=== PATIENT | male | born 1960 | race Caucasian/White ===

== ENCOUNTER 2021-01-27 13:08 | Inpatient (IN) ==
--- NOTE | 2021-01-13 15:07 | Anesthesiology Consultation ---
Date of Service January 13, 2021 Assessment & Plan (1) Encounter for pre-operative examination: Chart Review Chart Review: Acceptable Risk for Surgery (pending preop Covid testing on 01/20/21 and copy of Covid positive test from 12/30/20 ) and Patient NOT seen in Pre Admission Testing Per nursing assessment 01/13/2021, patient resides and works in [facility]. Works as owner operator tanker truck driver. Wears mask, uses good hand hygiene and socially distances. Pt did test Covid positive on 12/30/20 at [facility] (pt was scheduled for surgery that day and had symptoms so rapid Covid test was done). Had tested Covid negative 12/27/20. At time of Covid positive test- patient had chest congestion. Symptoms have significantly improved- has residual mild rhinitis in the morning. Pt was educated on 01/13/21 to call if symptoms do not continue to get better or get worse again. Pt scheduled for preop Covid testing 01/20/21= will await results. Will also attempt to get copy of original Covid positive test from 12/30/20. History Surgery Operation Date: 01/27/21 12:35 Proposed Procedures p L4-L5 Decompression and Fusion Spinal Cord Monitoring - Jayy Hunt, Height/Weight Height: 6 ft Weight: 117.934 kg Allergies Allergy/AdvReac Type Severity Reaction Status Date / Time No Known Allergies Allergy Verified 01/13/21 14:01 Medications Home Medications Medication Instructions Recorded Confirmed Last Taken levothyroxine 125 mcg PO QAM 01/13/21 01/13/21 Unknown lisinopril 40 mg PO QAM 01/13/21 01/13/21 Unknown simvastatin 20 mg PO QAM 01/13/21 01/13/21 Unknown Past Medical History Medical History (Updated 01/13/21 @ 15:20 by Rosie Friend PA-C) Cardiac murmur Murmur heard over six years ago- had negative work up Murmur has since resolved per patient - no issues currently Chronic back pain LOWER BACK TO BILAT LEGS History of COVID-19 12/27/20 [facility] NEG PREOP COVID TEST/CAME IN FOR BACK SX-12/30/20 [facility], HAD DEVELOPED CHEST CONGESTION OVER THE WEEKEND-RAPID COVID TEST DONE DOS-POS RESULT-SYMPTOMS CHEST CONGESTION WITH COUGH WITH PHLEGM-SX CANCELLED-STILL FEELS SOME CHEST CONGESTION BRINGING UP PHLEGM IN AM- RECOVERED AT HOME. Hyperlipidemia Hypertension Hypothyroidism Past Family History Family History Father Family history of diabetes mellitus Past Surgical History Surgical History History of arthroscopy LEFT KNEE History of colonoscopy History of tooth extraction Social History Smoking Status: Former smoker Do You Dip or Chew Tobacco: Yes (1 CAN PER WEEK) Smoking End Date: QUIT 8 YRS AGO Hx Alcohol Use: No Hx Substance Use: No Testing Laboratory Results Laboratory Tests 12/19/20 12/19/20 12/19/20 12:24 12:24 12:24 WBC 7.97 Hgb 14.6 Hct 42.2 Plt Count 243 PT 10.8 INR 1.1 Sodium 141 Potassium 3.9 Chloride 108 H Carbon Dioxide 26 BUN 14 Creatinine 1.06 Glucose 85 12/19/2020 = UA: Negative Electrocardiogram Date: 12/19/20 Findings: + NSR @ (81 bpm) Normal EKG. Chest X-Ray Date: 12/19/20 Findings: + NAD Metal subcentimeter BB projects over the right chest wall. Mild flattening of the diaphragm.
[~2021-01-27 13:08] MED LIST: ACETAMINOPHEN 500 MG TAB PO SCH; CeleBREX 200 MG CAP PO SCH; GABAPENTIN 600 MG DOSE PO SCH; LR 15ML/HR IV SCH; ceFAZolin 2000MG 2,000 MG/15 ML SYR IV SCH
[2021-01-27] MEDS ORDERED: ROCURONIUM BROMIDE 10 MG/ML 5 ML VIAL IV ONE (13:30)
[2021-01-27] MEDS ORDERED: NEOSTIGMINE METHYLSULFATE 1 MG/ML 10ML VIAL ONE (13:30)
[2021-01-27] MEDS ORDERED: DEXAMETHASONE SOD INJ 4 MG/ML VIAL ONE (13:30)
[2021-01-27] MEDS ORDERED: GLYCOPYRROLATE 0.2 MG/ML VIAL ONE ×2 (13:30→17:11)
[2021-01-27] MEDS ORDERED: MIDAZOLAM HCL 1 MG/ML 2ML VIAL ONE (13:30)
[2021-01-27] MEDS ORDERED: PROPOFOL IV EMULSION 10 MG/ML 20 ML VIAL IV ONE (13:30)
[2021-01-27] MEDS ORDERED: LIDOCAINE HCL 2% 2 ML VIAL/AMP(20MG/ML) INFIL ONE (13:30)
[2021-01-27] MEDS ORDERED: ONDANSETRON INJ 2 MG/ML 2 ML VIAL ONE ×2 (13:30→17:11)
[2021-01-27] MEDS ORDERED: HYDROmorphone INJ 2 MG/ML SYR/VIAL ONE (13:30)
[2021-01-27] MEDS ORDERED: ONDANSETRON INJ 2 MG/ML 2 ML VIAL IV PRN ×2 (14:05→18:57)
[2021-01-27] MEDS ORDERED: ePHEDrine sulfate 50 MG/ML AMP IV PRN (14:05)
[2021-01-27] MEDS ORDERED: HYDROmorphone INJ 1 MG/ML SYRINGE IV PRN ×2 (14:05→18:57)
[2021-01-27] MEDS ORDERED: ATROPINE SULFATE 0.1 MG/ML 10ML SYR IV PRN (14:05)
[2021-01-27] MEDS ORDERED: fentaNYL citrate 100 MCG/2 ML VIAL ONE (15:02)
--- NOTE | 2021-01-27 15:11 | History & Physical Bridge Note ---
Date of Service January 27, 2021 History & Physical Bridge Note I have examined the patient, reviewed the History & Physical and in the interval since the performance of the History & Physical I have noted the following changes of clinical significance: no changes noted
--- NOTE | 2021-01-27 15:12 | History & Physical Report ---
Date of Service January 27, 2021 Assessment & Plan (1) Neurogenic claudication due to lumbar spinal stenosis: Admission and Anticipated Discharge Date Admission Date: L4-L5 decompression fusion History of Present Illness Chief Complaint: Back and leg pain Primary Care Provider: Wm Deal MD This is a 60-year-old male who presents with chronic persistent back and leg pain after failing extensive course of nonoperative care is here for surgical invention. Allergies Allergy/AdvReac Type Severity Reaction Status Date / Time No Known Allergies Allergy Verified 01/27/21 13:39 Home Medications Medication Instructions Recorded Confirmed Type levothyroxine 125 mcg PO QAM 01/13/21 01/27/21 History lisinopril 40 mg PO QAM 01/13/21 01/27/21 History simvastatin 20 mg PO QAM 01/13/21 01/27/21 History Past Med/Surg History Medical History (Updated 01/27/21 @ 15:11 by Jayy Hunt DO) Cardiac murmur Murmur heard over six years ago- had negative work up Murmur has since resolved per patient - no issues currently Chronic back pain LOWER BACK TO BILAT LEGS History of COVID-19 12/27/20 [facility] NEG PREOP COVID TEST/CAME IN FOR BACK SX-12/30/20 [facility], HAD DEVELOPED CHEST CONGESTION OVER THE WEEKEND-RAPID COVID TEST DONE DOS-POS RESULT-SYMPTOMS CHEST CONGESTION WITH COUGH WITH PHLEGM-SX CANCELLED-STILL FEELS SOME CHEST CONGESTION BRINGING UP PHLEGM IN AM- RECOVERED AT HOME. Hyperlipidemia Hypertension Hypothyroidism Surgical History History of arthroscopy LEFT KNEE History of colonoscopy History of tooth extraction Family History Father Family history of diabetes mellitus Social History Smoking Status: Former smoker Smoking End Date: QUIT 8 YRS AGO; Second Hand Exposure: Yes (PARENTS SMOKED); Do You Dip or Chew Tobacco: Yes (1 CAN PER WEEK); Hx Alcohol Use: No Hx Substance Use: No Preferred Language: Mongolian Communication Ability: Effective Juvenile Justice Officer Required: No Beliefs That Will Affect Care: None Current Living Situation: Spouse Other Information That Helps Us Care for You: No Feels Safe at Home: Yes Safety Concerns: Feels Safe At This Time Assistive Devices: Denture - Upper, Denture - Lower and Hearing Aid - Left Physical Exam Physical Exam: Patient is alert and oriented Heart regular rate and rhythm Lungs clear to auscultation Results & Data ([facility]) Vital Signs (Past 12 Hours) Vital Signs Temp Pulse Resp BP Pulse Ox 01/27/21 13:41 36.5 C 81 22 155/99 H 98
[2021-01-27] MEDS ORDERED: BUPIVACAINE/EPINEPHRINE 0.5% MPF 1:200,000 30 ML VIAL ONE (15:23)
[2021-01-27] MEDS ORDERED: BACITRACIN INJ 50,000 UNIT VIAL ONE (15:24)
[2021-01-27] MEDS ORDERED: ePHEDrine sulfate 50 MG/ML AMP ONE (16:15)
[2021-01-27] MEDS ORDERED: PHENYLEPHRINE 100MCG/ML 5ML SYR ONE (16:15)
[2021-01-27] MEDS ORDERED: FLOSEAL HEMOSTATIC MATRIX 10ML TOP ONE ×2 (16:29→16:35)
[2021-01-27] MEDS ORDERED: LARYING-O-JET KIT (LTA) ONE (17:11)
--- NOTE | 2021-01-27 17:49 | Fluoroscopy Report ---
FL lumbar spine 2-3V CLINICAL HISTORY: L4-L5 DECOMPRESSION AND FUSION COMPARISON STUDY: None FLUOROSCOPY TIME: 10 seconds. NUMBER OF FLUOROSCOPIC IMAGES: 2 FINDINGS: 2 intraoperative fluoroscopic spot images demonstrate postsurgical changes of an L4-5 disce ctomy and interbody fusion, and posterior pedicle screw fixation. IMPRESSION: Intraoperative fluoroscopic spot images demonstrating postsurgical changes of an L4-5 sp inal decompression and fusion ACT 112: Negative or not required by law. Electronically signed by: Dao Montoya M.D. 01/27/2021 5:48 PM
--- NOTE | 2021-01-27 17:50 | Operative Report ---
Post Operative Report Pre & Post Diagnosis Operation Date: 01/27/21 12:45 Pre-Op Diagnosis: Spinal Stenosis, Lumbar Region without Neurogenic Post-Op Diagnosis: Spinal Stenosis, Lumbar Region without Neurogenic I identified the patient and participated in the time-out.: Yes Procedure Operation Date: 01/27/21 12:45 Actual Procedures #1 lumbar decompression with bilateral medial facetectomies and foraminotomies L3-4 and L4-5. #2 posterior spinal fusion L4-5. #3 placement posterior instrumentation L4-5. #4 interbody fusion L4-5. #5 placement peek cage 14 x 26 mm at L4-5. #6 placement of locally harvested morselized autograft in the posterior lateral gutters. #7 placement infuse collagen sponge combined with master graft in the posterior lateral gutters and I factor in the interbody space. Surgeon Jayy Hunt, Applications Scientist None Estimated Blood Loss 330 Findings See Below Patient is 6 foot tall weighing over 115 kg with a BMI in excess of 34. The patient's body habitus did add significant technical difficulty requiring her deepest retractors longus instruments in order to perform his procedure. This had at least 50% increase to the operative time. Specimens None Indications This is a 60-year-old male that presents with above-mentioned diagnosis after failing stents course of nonoperative care is here for surgical invention. Description of Procedure Patient was met with identified informed consent obtained. Patient was then taken to the operative suite underwent a patient placed in a prone position the [address] table top Jared frame. All bony prominences well-padded eyes inspected to ensure no external pressure placed upon the bed at this point the lumbar spine was prepped and draped in normal sterile fashion. Sharp dissection with the assistance of Bovie cautery performed down to and exposing the lamina and transverse processes of L4 and L5 bilaterally. Self-retaining retractor was placed. Informed complete laminectomy of L4 partial laminectomy of L3 including bilateral medial facetectomies and foraminotomies. This address severe lateral recess disease briefly the 4 5 level on the right where there was marked adhesions of the facet cyst on the traversing root. After complete decompression pedicle screws then placed in L4 and L5 bilaterally with assistance of fluoroscopy and appropriately sized elise placed. By way of a transforaminal approach on right a complete discectomy was performed endplates curetted to subcortical bleeding bone and a 14 x 26 mm peek cage filled with I factor tapped in position. The rods were then locked in final position bilaterally. The transverse processes of L4 and L5 burred to subcortical bleeding bone. Infuse collagen sponge master graft local autograft was placed in the posterior gutters. 15 round ROCKY drain inserted. The incision was then closed with 1 Vicryl in the fascia 2-0 Vicryl subcutaneously and 4 Monocryl for final skin closure. Steri-Strip sterile dressings placed. Patient will continue to PACU stable condition. Please note spinal cord monitoring was utilized at the procedure no changes noted. I attest to the content of the Intraoperative Record and any orders documented therein. Any exceptions are noted below.
[2021-01-27] MEDS: fentaNYL citrate 100 MCG/2 ML VIAL IV PRN ×2 (18:22→18:27)
--- NOTE | 2021-01-27 18:45 | Anesthesiology Progress Note ---
Date of Service January 27, 2021 Anesthesia Post Procedure Vital Signs Vital Signs: Temp Pulse Pulse Resp BP Pulse Ox 01/27/21 18:43 84 12 150/87 H 97 01/27/21 18:35 36.2 C L 87 19 150/87 H 96 01/27/21 18:25 68 14 142/83 H 98 01/27/21 18:15 88 14 162/94 H 98 01/27/21 18:05 69 14 135/81 93 01/27/21 17:58 36.8 C 96 H 18 157/81 H 96 01/27/21 13:41 36.5 C 81 22 155/99 H 98 Pain Intensity Lower Medial Back: Pain Intensity: 4 Transfer of Care Handoff Completed per policy Notes Mental Status: alert / awake / arousable Patient Amnestic to Procedure: Yes Nausea / Vomiting: adequately controlled Pain: adequately controlled Airway Patency, RR, SpO2: stable & adequate BP & HR: stable & adequate Hydration State: stable & adequate Anesthetic Complications: no major complications apparent
[2021-01-27] MEDS ORDERED: hydrOXYzine HCl 25 MG TAB PO PRN (18:57)
[2021-01-27] MEDS ORDERED: LACTATED RINGER'S 1,000 ML IV SCH (18:57)
[2021-01-27] MEDS ORDERED: LORazepam 0.5 MG TAB PO PRN (18:57)
[2021-01-27] MEDS ORDERED: DO NOT ADMINISTER FLU VACCINE PRN (18:57)
[2021-01-27] MEDS ORDERED: ALUMINUM/MAGNESIUM SUSP 30 ML UDC PO PRN (18:57)
[2021-01-27] MEDS ORDERED: ACETAMINOPHEN 500 MG TAB PO PRN (18:57)
[2021-01-27] MEDS ORDERED: SOD PHOSPHATE/SOD BIPHOSPHATE ENEMA 132 ML BTL PR PRN (18:57)
[2021-01-27] MEDS ORDERED: LORazepam 0.5 MG/1 ML VIAL IV PRN (18:57)
[2021-01-27] MEDS ORDERED: PROMETHAZINE HCL 12.5 MG in SODIUM CHLORIDE 0.9% 50 ML IV PRN (18:57)
[2021-01-27] MEDS ORDERED: DO NOT ADMINISTER PNEUMOCOCCAL VACCINE PRN (18:57)
[2021-01-27] MEDS ORDERED: ACETAMINOPHEN 1,000 MG/100 ML VIAL IV PRN (18:57)
[2021-01-27] MEDS ORDERED: ONDANSETRON 4 MG OD TAB PO PRN (18:57)
[2021-01-27] MEDS ORDERED: NALOXONE HCL 0.4 MG/1 ML VIAL/CARP IV PRN (18:57)
[2021-01-27] MEDS ORDERED: MAGNESIUM HYDROXIDE SUSP 30 ML UDC PO PRN (18:57)
[2021-01-27] MEDS ORDERED: METOCLOPRAMIDE HCL INJ 5 MG/ML 2 ML VIAL IV PRN (18:57)
[2021-01-27] MEDS ORDERED: diphenhydrAMINE Capsule 25 MG CAP PO PRN (18:57)
[2021-01-27] MEDS ORDERED: FAMOTIDINE 20 MG TAB PO PRN (18:57)
[2021-01-27] MEDS ORDERED: lisinopril 40 MG TAB PO STA (19:43)
[2021-01-27] MEDS ORDERED: LACTATED RINGER'S 1,000 ML IV ONE (19:43)
--- NOTE | 2021-01-27 19:44 | Hospitalist Consultation ---
Date of Consultation January 27, 2021 Assessment & Plan (1) Neurogenic claudication due to lumbar spinal stenosis: Final Assessment and Recommendations as follows : LSS status post surgery Clinically well hypertension, elevated secondary to missed morning ACEI Rx hyperlipidemia on statin Rx past tobacco abuse Facilitate lisinopril Prudent to avoid NSAIDs for analgesia given uncontrolled BP. Initiate amlodipine if BP still uncontrolled. DVT prophylaxis. SCDs as per postop orders Thank you very much for this consultation. Dr. Walker will follow patient's progress. Text document was generated using Spectra[employer] voice recognition software. It may contain grammatical or spelling errors. Kindly contact undersigned for clarification of any documentation item in question. History of Present Illness Reason for Consultation: Medical management Requesting Physician: Dr. Hunt Attending Physician: Jayy Hunt DO History of Present Illness PCP : Dr. Wm Deal History obtained from patient and records. Medical history significant for hypertension, hyperlipidemia, hypothyroidism, past tobacco abuse. Patient underwent elective decompression fusion surgery for LSS today. Elevated BP postop, SBP 140s to 160s. Postop pain controlled. Denies chest pain, S OB. Medical History as above Surgical History : Back surgery, knee surgery Family History : DM Personal/Social history : Past tobacco/alcohol abuse, prior work as a livestock trucker Allergies Allergy/AdvReac Type Severity Reaction Status Date / Time No Known Allergies Allergy Verified 01/27/21 13:39 Home Medications Medication Instructions Recorded Confirmed Type levothyroxine 125 mcg PO QAM 01/13/21 01/27/21 History lisinopril 40 mg PO QAM 01/13/21 01/27/21 History simvastatin 20 mg PO QAM 01/13/21 01/27/21 History Patient History Medical History (Updated 01/27/21 @ 15:11 by Jayy Hunt DO) Cardiac murmur Murmur heard over six years ago- had negative work up Murmur has since resolved per patient - no issues currently Chronic back pain LOWER BACK TO BILAT LEGS History of COVID-19 12/27/20 [facility] NEG PREOP COVID TEST/CAME IN FOR BACK SX-12/30/20 [facility], HAD DEVELOPED CHEST CONGESTION OVER THE WEEKEND-RAPID COVID TEST DONE DOS-POS RESULT-SYMPTOMS CHEST CONGESTION WITH COUGH WITH PHLEGM-SX CANCELLED-STILL FEELS SOME CHEST CONGESTION BRINGING UP PHLEGM IN AM- RECOVERED AT HOME. Hyperlipidemia Hypertension Hypothyroidism Surgical History History of arthroscopy LEFT KNEE History of colonoscopy History of tooth extraction Family History Father Family history of diabetes mellitus Social History Smoking Status: Former smoker Smoking End Date: QUIT 8 YRS AGO; Second Hand Exposure: Yes (PARENTS SMOKED); Do You Dip or Chew Tobacco: Yes (1 CAN PER WEEK); Hx Alcohol Use: No Hx Substance Use: No Preferred Language: Latvian Communication Ability: Effective General Maintenance Engineer Required: No Beliefs That Will Affect Care: None Current Living Situation: Spouse Other Information That Helps Us Care for You: No Feels Safe at Home: Yes Safety Concerns: Feels Safe At This Time Assistive Devices: Walker Review of Systems Review of Systems: As per HPI, all 10 systems reviewed, all other ROS negative Physical Exam Physical Exam: GENERAL: Comfortable, pleasant, obese, no respiratory distress SKIN: Normal color, warm HEENT: [place] palpebral conjunctivae, no ptosis, dry buccal mucosa NECK : Supple, short neck, no tenderness CHEST : Decreased breath sounds, no tenderness HEART : RRR, no obvious murmurs ABDOMEN: Some distention, nontender EXTREMITIES : No LE swelling/tenderness, SCDs in place, no other conspicuous deformities noted NEUROLOGIC : Coherent, no facial asymmetry, no other gross focality Results & Data Results & Data ([facility]) Vital Signs (Past 12 Hours) Vital Signs Temp Pulse Pulse Resp BP Pulse Ox 01/27/21 19:28 36.6 C 76 18 141/87 H 95 01/27/21 18:45 67 12 159/94 H 97 01/27/21 18:35 36.2 C L 87 19 150/87 H 96 01/27/21 18:25 68 14 142/83 H 98 01/27/21 18:15 88 14 162/94 H 98 01/27/21 18:05 69 14 135/81 93 01/27/21 17:58 36.8 C 96 H 18 157/81 H 96 01/27/21 13:41 36.5 C 81 22 155/99 H 98 Laboratory Results Laboratory Results Blood Type A Positive 01/27/21 14:03 Antibody Screen NEGATIVE 01/27/21 14:03
[2021-01-27] MEDS: oxyCODONE HCL IR 5 MG TAB (IMMEDIATE RELEASE) PO PRN (19:45)
[2021-01-27] MEDS ORDERED: KETOROLAC 30 MG/ML VIAL IV SCH (20:00)
[2021-01-27] MEDS: DOCUSATE SODIUM/SENNA 50/8.6MG TAB PO SCH (21:10)
[2021-01-27] MEDS: ceFAZolin 2000MG 2,000 MG/15 ML SYR IV SCH (23:19)
[2021-01-28] MEDS ORDERED: LIDOCAINE 2% JELLY 5 ML TUBE ONE (02:46)
[2021-01-28] MEDS ORDERED: amLODIPine BESYLATE 5 MG TAB PO SCH (03:25)
[2021-01-28] MEDS: POLYETHYLENE (MIRALAX) 17 GM PACK PO SCH ×4 (05:57→22:37)
[2021-01-28] MEDS: LEVOTHYROXINE SODIUM 125 MCG TABLET PO SCH (05:57)
[2021-01-28] MEDS: oxyCODONE HCL IR 5 MG TAB (IMMEDIATE RELEASE) PO PRN ×2 (07:41→15:03)
[2021-01-28] MEDS: ceFAZolin 2000MG 2,000 MG/15 ML SYR IV SCH (07:42)
[2021-01-28] MEDS: SIMVASTATIN 20 MG TAB PO SCH (07:47)
[2021-01-28] MEDS: lisinopril 40 MG TAB PO SCH (07:48)
[2021-01-28 09:10] LABS: Hematocrit (blood only) 36.8 % (42-52); Immature Granulocytes # (auto) 0.05 K/uL (0.00-0.02); Immature Granulocytes % (auto) 0.3 %; Lymphocytes % (auto) 8.6 %; Mean Corpuscular Hgb Conc 35.3 g/dL (32-36); Mean Corpuscular Volume 87.6 fL (80-100); Mean Platelet Volume 9.5 fL (7.4-10.4); Monocytes # (auto) 0.87 K/uL (0.11-0.59); Neutrophils # (auto) 14.97 K/uL (1.4-6.5); Neutrophils % (auto) 86.1 %; Platelet Count 262 K/uL (130-400); RDW Coefficient of Variation 13.3 % (11.5-14.5); RDW Standard Deviation 42.9 fL (36.4-46.3); White Blood Count 17.39 K/uL (4.8-10.8)
[2021-01-28 09:44] LABS: BUN Creatinine Ratio 12.1 (10-20); Creatinine Clr Calc Pharmacy 87.7 ml/min; Est GFR (Non-African American) 66.5; Potassium 3.5 mmol/L (3.5-5.1)
[2021-01-28] MEDS ORDERED: CYCLOBENZAPRINE HCL 10 MG TAB PO PRN (12:12)
--- NOTE | 2021-01-28 12:14 | Orthopedic Progress Note ---
Date of Service January 28, 2021 Assessment & Plan (1) Neurogenic claudication due to lumbar spinal stenosis: Admission and Anticipated Discharge Date Admission Date: January 27, 2021 This time we will continue physical therapy monitor his ROCKY operatively discharge home in the next day or so. Subjective Back pain is controlled leg symptoms markedly improved. Physical Exam Physical Exam: Patient has good strength testing appears comfortable. Results & Data ([facility]) Vital Signs (Past 12 Hours) Vital Signs Temp Pulse Resp BP Pulse Ox 01/28/21 08:07 36.9 C 89 16 114/76 95 01/28/21 02:44 36.6 C 96 H 18 162/97 H 95
--- NOTE | 2021-01-28 15:31 | Hospitalist Progress Note ---
Date of Service January 28, 2021 Assessment & Plan (1) Neurogenic claudication due to lumbar spinal stenosis: LSS status post surgery Hemoglobin from 14 down to 13 Continue to monitor hemoglobin DVT prophylaxis per surgical team Management of blood pressure as noted below Hypertension On presentation, blood pressure was elevated secondary to missing his lisinopril This afternoon, blood pressure is on the lower side, systolic 98, likely from as needed narcotics Hold amlodipine that was ordered last night Continue lisinopril with holding parameters Monitor closely Hyperlipidemia on statin Rx Hypothyroidism Continue levothyroxine Thank you very much for this consultation. Dr. Malave will follow patient's progress. Admission and Anticipated Discharge Date Admission Date: January 27, 2021 Subjective ff up s/p lumbar spine surgery seen resting in chair comfortable, not in distress states he feels fine overall except for pain over the surgical site relieved by PRN meds no headache, dizziness, chest pain, palpitations, abdominal pain, nausea vomiting Positive flatus, no BM yet No other symptoms Review of Systems Review of Systems: All systems reviewed & are unremarkable except as noted in Subjective Physical Exam Physical Exam: General- oriented x 3, not in distress, speaks in sentences with no effort or accessory muscle use Eyes- anicteric Neck- no JVD Lungs- clear breath sounds bilaterally, no rales/wheezes Heart- normal rate, regular rhythm; no murmurs Abdomen- normal bowel sounds, nondistended, soft, nontender Extremities- no pretibial edema, no calf tenderness Neuro- alert, oriented x 3; no gross focal neurologic deficits Skin- warm & dry Results & Data Results & Data ([facility]) Vital Signs (Past 12 Hours) Vital Signs Temp Pulse Resp BP Pulse Ox 01/28/21 15:22 36.8 C 100 H 20 98/64 L 93 01/28/21 08:07 36.9 C 89 16 114/76 95 all noted and reviewed including below Laboratory Results Laboratory Results - last 24 hr 01/27/21 01/28/21 01/28/21 14:03 08:44 08:44 WBC 17.39 H RBC 4.20 L Hgb 13.0 L Hct 36.8 L MCV 87.6 MCH 31.0 MCHC 35.3 RDW Std Deviation 42.9 RDW Coeff of Cuca 13.3 Plt Count 262 MPV 9.5 Immature Gran % (Auto) 0.3 Neut % (Auto) 86.1 Lymph % (Auto) 8.6 Edmunds % (Auto) 5.0 Eos % (Auto) 0.0 Baso % (Auto) 0.0 Neut # (Auto) 14.97 H Lymph # (Auto) 1.50 Edmunds # (Auto) 0.87 H Eos # (Auto) 0.00 Baso # (Auto) 0.00 Immature Gran # (Auto) 0.05 H Sodium 136 Potassium 3.5 Chloride 103 Carbon Dioxide 26 Anion Gap 7.0 BUN 14 Creatinine 1.19 Est Cr Clr Drug Dosing 87.7 Est GFR ( Amer) 77.0 Est GFR (Non-Af Amer) 66.5 BUN/Creatinine Ratio 12.1 Glucose 176 H Calcium 9.0 Magnesium 2.0 Blood Type A Positive Antibody Screen NEGATIVE
[2021-01-28] MEDS: HYDROmorphone INJ 0.5 MG/0.5 ML SYR IV PRN (15:53)
[2021-01-28] MEDS: traMADol HCL 50 MG TABLET PO PRN (17:45)
[2021-01-28] MEDS: DOCUSATE SODIUM/SENNA 50/8.6MG TAB PO SCH (19:51)
[2021-01-28] MEDS ORDERED: LACTATED RINGER'S 1,000 ML IV ONE (20:47)
[2021-01-29] MEDS: POLYETHYLENE (MIRALAX) 17 GM PACK PO SCH ×4 (05:45→23:09)
[2021-01-29] MEDS: LEVOTHYROXINE SODIUM 125 MCG TABLET PO SCH (05:47)
[2021-01-29] MEDS: oxyCODONE HCL IR 5 MG TAB (IMMEDIATE RELEASE) PO PRN ×4 (08:23→22:13)
[2021-01-29] MEDS: lisinopril 40 MG TAB PO SCH (08:24)
[2021-01-29] MEDS: SIMVASTATIN 20 MG TAB PO SCH (08:24)
[2021-01-29] MEDS: HYDROmorphone INJ 0.5 MG/0.5 ML SYR IV PRN (09:46)
[2021-01-29] MEDS: traMADol HCL 50 MG TABLET PO PRN ×2 (11:04→15:32)
--- NOTE | 2021-01-29 13:04 | Orthopedic Progress Note ---
Date of Service January 29, 2021 Assessment & Plan (1) Neurogenic claudication due to lumbar spinal stenosis: Admission and Anticipated Discharge Date Admission Date: January 27, 2021 This time we will continue with physical therapy monitor his ROCKY output anticipate discharge home tomorrow. Subjective Back and leg pain improved Physical Exam Physical Exam: Patient is distracted testing appears comfortable. Results & Data ([facility]) Vital Signs (Past 12 Hours) Vital Signs Temp Pulse Resp BP Pulse Ox 01/29/21 08:26 36.7 C 90 18 133/77 93
--- NOTE | 2021-01-29 16:40 | Hospitalist Progress Note ---
Date of Service January 29, 2021 Assessment & Plan (1) Neurogenic claudication due to lumbar spinal stenosis: LSS status post surgery Hemoglobin from 14 down to 13 Continue to monitor hemoglobin DVT prophylaxis per surgical team Management of blood pressure as noted below Noted to have significant pain this morning-has been getting pain medications Significant leukocytosis of more than 17,000 No evidence of any infection at this time Likely secondary to hand surgery and a stress We will monitor CBC Hypertension On presentation, blood pressure was elevated secondary to missing his lisinopril This afternoon, blood pressure is on the lower side, systolic 98, likely from as needed narcotics Hold amlodipine that was ordered last night Continue lisinopril with holding parameters Blood pressure seems to be stable Hyperlipidemia on statin Rx Hypothyroidism Continue levothyroxine Remains medically stable Admission and Anticipated Discharge Date Admission Date: January 27, 2021 Subjective 01/29/2021 The patient was seen and examined in medical floor He complained to have back pain without any radiation Denies any other symptoms specially no fever and/or chills, no urinary symptoms, no bowel problem and no respiratory symptoms Review of Systems Review of Systems: All systems reviewed and are unremarkable except as noted below Physical Exam Physical Exam: Lying in bed comfortably Constitutional: well developed, well nourished and + obese; not ill appearing Eyes: PERRL, conjunctivae normal, anicteric sclerae ENMT: external ear and nose normal, oropharynx normal Neck: trachea midline, no thyromegaly Respiratory: no respiratory distress Auscultation: lungs clear to auscultation bilaterally Cardiovascular: Rate/Rhythm: regular rate and regular rhythm Heart Sounds: no murmur Extremities: no edema Gastrointestinal (Abdomen): Inspection/Auscultation: normal bowel sounds; abdomen not distended Percussion/Palpation: abdomen soft; abdomen nontender Musculoskeletal: Has significant back pain status post surgery but no other acute arthritis Neurologic: Alert, awake and oriented x3 Results & Data Results & Data ([facility]) Vital Signs (Past 12 Hours) Vital Signs Temp Pulse Pulse Resp BP BP Pulse Ox 01/29/21 15:33 36.6 C 77 18 127/80 94 01/29/21 08:26 36.7 C 90 18 133/77 93 Medications Administered Current Inpatient Medications Acetaminophen (Acetaminophen 500 Mg Tab) 1,000 mg PO Q8H PRN PRN Reason: MILD Pain Scale 1,2,3 & Pre PT Stop: 02/26/21 18:56 Last Admin: 01/28/21 22:37 Dose: 1,000 mg Documented by: Al Hydrox/Mg Hydrox/Simethicone (Aluminum/Magnesium Susp 30 Ml Udc) 30 ml PO Q6H PRN PRN Reason: Dyspepsia Stop: 02/26/21 18:56 Amlodipine Besylate (Amlodipine Besylate 5 Mg Tab) 2.5 mg PO QAM CYRIL Stop: 02/27/21 03:24 Last Admin: 01/28/21 05:57 Dose: 2.5 mg Documented by: Bisacodyl (Bisacodyl 10 Mg Supp) 10 mg OH DAILY PRN PRN Reason: Constipation Stop: 02/28/21 17:50 Cyclobenzaprine HCl (Cyclobenzaprine Hcl 10 Mg Tab) 10 mg PO Q8H PRN PRN Reason: Muscle Spasm Stop: 02/27/21 12:11 Last Admin: 01/28/21 13:56 Dose: 10 mg Documented by: Diphenhydramine HCl (Diphenhydramine Capsule 25 Mg Cap) 25 mg PO Q6H PRN PRN Reason: Allergic Rhinitis/Insomnia Stop: 02/26/21 18:56 Famotidine (Famotidine 20 Mg Tab) 20 mg PO Q12H PRN PRN Reason: Dyspepsia Stop: 02/26/21 18:56 Hydromorphone HCl (Hydromorphone Inj 0.5 Mg/0.5 Ml Syr) 0.5 mg IV Q3H PRN PRN Reason: MOD pain (scale 4-6) & Pre PT Stop: 02/10/21 18:56 Last Admin: 01/29/21 09:46 Dose: 0.5 mg Documented by: Hydromorphone HCl (Hydromorphone Inj 1 Mg/Ml Syringe) 1 mg IV Q3H PRN PRN Reason: severe pain (scale 7-10) Stop: 02/10/21 18:56 Last Admin: 01/27/21 21:10 Dose: 1 mg Documented by: Hydroxyzine HCl (Hydroxyzine Hcl 25 Mg Tab) 25 mg PO Q8H PRN PRN Reason: Anxiety Stop: 02/26/21 18:56 Acetaminophen (Ofirmev) 1,000 mg in 100 mls @ 400 mls/hr IV Q8H PRN PRN Reason: Pain Rating 1-3 & Pre PT Stop: 01/30/21 18:56 Last Infusion: 01/28/21 03:27 Dose: Infused Documented by: Lorazepam (Ativan) 0.5 mg in 1 mls @ 1 mls/min IV Q8H PRN PRN Reason: Sedation/Anxiety Stop: 02/26/21 18:56 Promethazine HCl 12.5 mg/ (Sodium Chloride) 50.5 mls @ 202 mls/hr IV Q6H PRN PRN Reason: Nausea &/or Vomiting Stop: 02/26/21 18:56 Influenza Virus Vaccine Quadrival (Do Not Administer Flu Vaccine) 1 ea N/A PRN PRN PRN Reason: Notification Stop: 02/26/21 18:56 Levothyroxine Sodium (Levothyroxine Sodium 125 Mcg Tablet) 125 mcg PO DAILYBB [facility] Stop: 02/27/21 06:29 Last Admin: 01/29/21 05:47 Dose: 125 mcg Documented by: Lisinopril (Lisinopril 40 Mg Tab) 40 mg PO QAM [facility] Stop: 02/27/21 08:59 Last Admin: 01/29/21 08:24 Dose: 40 mg Documented by: Lorazepam (Lorazepam 0.5 Mg Tab) 0.5 mg PO Q8H PRN PRN Reason: sedation/anxiety Stop: 02/26/21 18:56 Magnesium Hydroxide (Magnesium Hydroxide Susp 30 Ml Udc) 30 ml PO Q24H PRN PRN Reason: Constipation Stop: 02/26/21 18:56 Metoclopramide HCl (Metoclopramide Hcl Inj 5 Mg/Ml 2 Ml Vial) 10 mg IV Q6H PRN PRN Reason: Nausea &/or Vomiting Stop: 02/26/21 18:56 Naloxone HCl (Naloxone Hcl 0.4 Mg/1 Ml Vial/Carp) 0.1 mg IV Q5M PRN PRN Reason: Oversedation/respiratory dep Stop: 02/26/21 18:56 Ondansetron HCl (Ondansetron Inj 2 Mg/Ml 2 Ml Vial) 4 mg IV Q6H PRN PRN Reason: Nausea &/or Vomiting Stop: 02/26/21 18:56 Ondansetron HCl (Ondansetron 4 Mg Od Tab) 4 mg PO Q6H PRN PRN Reason: Nausea Stop: 02/26/21 18:56 Oxycodone HCl (Oxycodone Hcl Ir 5 Mg Tab (Immediate Release)) 5 - 10 mg PO Q4H PRN PRN Reason: Pain & Pre PT Stop: 02/10/21 18:56 Last Admin: 01/29/21 13:36 Dose: 10 mg Documented by: Pneumococcal Polyvalent Vaccine (Do Not Administer Pneumococcal Vaccine) 1 ea N/A PRN PRN PRN Reason: Notification Stop: 02/26/21 18:56 Polyethylene Glycol (Polyethylene (Miralax) 17 Gm Pack) 17 gm PO Q6 [facility] Stop: 02/27/21 05:59 Last Admin: 01/29/21 12:14 Dose: Not Given Documented by: Senna/Docusate Sodium (Docusate Sodium/Senna 50/8.6mg Tab) 2 tab PO HS [facility] Stop: 02/26/21 20:59 Last Admin: 01/28/21 19:51 Dose: 2 tab Documented by: Simvastatin (Simvastatin 20 Mg Tab) 20 mg PO QAM [facility] Stop: 02/27/21 08:59 Last Admin: 01/29/21 08:24 Dose: 20 mg Documented by: Sodium Biphosphate/Sodium Phosphate (Sod Phosphate/Sod Biphosphate Enema 132 Ml Btl) 132 ml OH ONE PRN PRN Reason: Constipation Stop: 02/26/21 18:56 Tramadol HCl (Tramadol Hcl 50 Mg Tablet) 50 - 100 mg PO Q4H PRN PRN Reason: Moderate-Severe pain & Pre PT Stop: 02/26/21 18:56 Last Admin: 01/29/21 15:32 Dose: 100 mg Documented by:
[2021-01-29] MEDS ORDERED: bisacodyL 10 MG SUPP PR PRN (17:51)
[2021-01-29] MEDS: DOCUSATE SODIUM/SENNA 50/8.6MG TAB PO SCH (20:19)
[2021-01-30] MEDS: POLYETHYLENE (MIRALAX) 17 GM PACK PO SCH ×2 (05:05→13:47)
[2021-01-30] MEDS: LEVOTHYROXINE SODIUM 125 MCG TABLET PO SCH (05:35)
[2021-01-30 06:35] LABS: Basophils # (auto) 0.02 K/uL (0-0.2); Basophils % (auto) 0.2 %; Eosinophils # (auto) 0.18 K/uL (0-0.5); Eosinophils % (auto) 1.6 %; Hematocrit (blood only) 36.2 % (42-52); Hemoglobin 12.2 g/dL (14.0-18.0); Immature Granulocytes # (auto) 0.04 K/uL (0.00-0.02); Immature Granulocytes % (auto) 0.4 %; Lymphocytes # (auto) 1.93 K/uL (1.2-3.4); Lymphocytes % (auto) 17.4 %; Mean Corpuscular Hgb Conc 33.7 g/dL (32-36); Mean Corpuscular Volume 89.2 fL (80-100); Mean Platelet Volume 9.1 fL (7.4-10.4); Monocytes # (auto) 0.92 K/uL (0.11-0.59); Monocytes % (auto) 8.3 %; Neutrophils # (auto) 7.98 K/uL (1.4-6.5); Neutrophils % (auto) 72.1 %; Platelet Count 207 K/uL (130-400); RDW Coefficient of Variation 13.4 % (11.5-14.5); RDW Standard Deviation 44.3 fL (36.4-46.3); Red Blood Count 4.06 M/uL (4.7-6.1); White Blood Count 11.07 K/uL (4.8-10.8)
[2021-01-30] MEDS: lisinopril 40 MG TAB PO SCH (08:04)
[2021-01-30] MEDS: SIMVASTATIN 20 MG TAB PO SCH (08:04)
--- NOTE | 2021-01-30 09:39 | Hospitalist Progress Note ---
Date of Service January 30, 2021 Assessment & Plan (1) Neurogenic claudication due to lumbar spinal stenosis: LSS status post surgery POD#3 Hemoglobin 12 (preop 14.6) Continue to monitor H/H DVT prophylaxis per surgical team Initially with significant leukocytosis of more than 17,000 postoperatively - downtrending to 11 today No evidence of any infection at this time Likely secondary to hand surgery and stress Continue to monitor CBC Hypertension On presentation, blood pressure was elevated secondary to missing his lisinopril This afternoon, blood pressure is on the lower side, systolic 98, likely from as needed narcotics Continue lisinopril with holding parameters Hyperlipidemia on statin Rx Hypothyroidism Continue levothyroxine Dispo: Per primary service Patient seen in collaboration with Dr. Malave. Please see addendum. Admission and Anticipated Discharge Date Admission Date: January 27, 2021 Supervising Physician Co-Signing Physician Notes Attending addendum: The patient was seen and examined in medical floor He has been doing much better today Denies any significant symptoms On examination Lying in bed without any acute distress Hemodynamically stable with blood pressure on the upper side Chestclear to auscultate bilaterally HeartS1-S2, no murmur Abdomenbenign Extremitiestrace edema bilaterally His repeat labs noted No evidence of any infection and the white count is trending down Agree with assessment and plan as outlined above by [facility] Subjective Seen and examined in 319-1. Minimal pain today. No numbness or paresthesias in bilateral lower extremities. Tolerating diet without issue. Passing flatus, no bowel movement yet. Denies any fever, chills, lightheadedness, headache, chest pain, shortness of breath, nausea, vomiting, abdominal pain, dysuria or diarrhea. Review of Systems Review of Systems: At least ten systems reviewed and negative except as noted in the HPI. Physical Exam Physical Exam: General Appearance: WD/WN, vitals as above, NAD, sitting up in bed, pleasant, conversing easily Head: normocephalic, atraumatic Eyes: normal inspection, PERRL, conjunctivae normal, anicteric sclerae ENT: external ear and nose normal, oropharynx normal Neck: normal visual inspection, trachea midline, no thyromegaly Respiratory: normal respiratory effort, lungs clear to auscultation, no wheeze, rales, rhonchi. No accessory muscle use Cardiovascular: regular rate, rhythm, no murmur, normal peripheral pulses, no BLE edema. Vessels: no JVD Chest: normal inspection of chest Abdomen/GI: normal bowel sounds, soft, nontender, no hepatosplenomegaly Extremities/Musculoskeletal: Lumbar dressing c/d/i. ROCKY drain visualized. No cyanosis or clubbing, extremities motor strength 5/5 Neurologic: PERRL, EOMI, accommodation nl, no face palsy, no dysarthria, CN's II-XI intact bilaterally and moves all extremities Psychiatric: A+Ox3, euthymic affect Skin: no rashes, normal color, warm/dry Results & Data Results & Data ([facility]) Vital Signs (Past 12 Hours) Vital Signs Temp Pulse Pulse Resp BP BP Pulse Ox 01/30/21 08:23 36.7 C 91 H 18 163/104 H 94 01/30/21 04:39 36.6 C 96 H 20 146/99 H 94 01/29/21 21:56 36.8 C 90 14 147/88 H 92 Laboratory Results Short CBC 01/30/21 Range/Units 06:18 WBC 11.07 H (4.8-10.8) K/uL Hgb 12.2 L (14.0-18.0) g/dL Hct 36.2 L (42-52) % Plt Count 207 (130-400) K/uL Diagnostic Findings Short CBC 01/30/21 Range/Units 06:18 WBC 11.07 H (4.8-10.8) K/uL Hgb 12.2 L (14.0-18.0) g/dL Hct 36.2 L (42-52) % Plt Count 207 (130-400) K/uL
[2021-01-30] MEDS: oxyCODONE HCL IR 5 MG TAB (IMMEDIATE RELEASE) PO PRN ×2 (10:20→14:25)
--- NOTE | 2021-01-30 12:15 | Discharge Summary ---
Date of Service January 30, 2021 Admission HPI Per Admitting Provider This is a 60-year-old male who presents with chronic persistent back and leg pain after failing extensive course of nonoperative care is here for surgical invention. Principal Diagnosis Lumbar spinal stenosis with neurogenic claudication Discharge Data Allergies Allergy/AdvReac Type Severity Reaction Status Date / Time No Known Allergies Allergy Verified 01/27/21 13:39 Consultations 01/27/21 18:57 Consult Case Management - Discharge Planning Routine Consult Hospitalist Routine Procedures Performed Operation Date: 01/27/21 12:45 Actual Procedures p L4-L5 Decompression and Fusion with Spinal Cord Monitoring(Not Applicable) - Jayy Hunt DO Ordered Studies 01/27/21 12:45 FL fluoroscopy <1hr Routine FL lumbar spine 2-3V Routine Hospital Course (1) Neurogenic claudication due to lumbar spinal stenosis: Patient with lumbar decompression fusion tolerates well second orthopedic for postoperative. Postop day 1 is up and ambulating gross postop day #2 postop day #3 leg pain was well controlled excellent strength testing subsequent discharge home. Discharge orders instructions from the chart for further review. Total Time Total Time Spent Total Time Spent (In Minutes): 20 minutes Discharge Plan Discharge Items Patient Disposition: Home - Self-Care Reason For Visit: Spinal Stenosis, Lumbar Region without Neurogenic Discharge Diagnosis: Lumbar spinal stenosis with radiculopathy Activity: As commented below Non-emergency contact: Primary Care Provider Call non-emergency contact if: you have any medication questions Follow-up/Referrals: Wm Deal MD [Primary Care Provider] - Diet: Regular Addtl Attending Provider Instructions: ACTIVITY RECOMMENDATIONS: SELF CARE INSTRUCTIONS AFTER THORACIC/LUMBAR FUSIONS 1. You may walk to your tolerance. It is good exercise for your legs and back. Expect some back and intermittent leg aches and pains. 2. You may perform "counter-top" level activities (make a sandwich, susy with a project, etc.). 3. No bending or lifting of more than 10 pounds or back twisting of any nature (roll like a log when turning in bed). 4. You may ride in a car for 20-30 minutes at a time. No driving until after your first visit with your doctor. 5. Frequent changes of position and restricting sitting to 30 minutes at a time will help limit the amount of back spasms and stiffness you may experience. 6. You may discontinue the use of ambulatory aids (cane, crutches, etc.) once your strength and confidence allow. 7. You may fleet administrative assistant the shower and let water strike your incision when you arrive home at least once daily. Do not take a tub bath, sit in a hot tub or go into a swimming pool until after your first recheck in the office. SPECIAL CARE INSTRUCTIONS: VERY IMPORTANT TO READ AND REVIEW A. Your surgical incision has been closed with a cosmetic suture under the skin that will dissolve in about 6 weeks. In 14 days, you can use a pair of clean scissors and cut the suture that is left outside of the skin at the ends of your incision. 1. The small skin tapes can be removed 7 days after surgery if they have not fallen off by that point. 2. You may keep the wound open to air as much as possible to promote healing after post-op day number 5 unless told otherwise by your doctor. 3. If you think the wound looks like it is becoming infected (redness or worsening drainage) and/or you are experiencing fever, chill or worsening back pain and muscle spasms, contact the office so that we may evaluate you as soon as possible. B. Complications are uncommon, but please contact us if you have any signs or symptoms of: 1. wound infection (fever higher than 102.5 degrees F, redness, separation of wound, drainage, or increasing pain from the incision) 2. blood clots in legs (pain, swelling, redness and warmth in legs) 3. urinary tract infection (fever higher than 102.5 degrees F, burning upon urination or increased frequency of urination) 4. nerve problems (inability to walk on your toes or heels, numbness, loss of bowel or bladder control) 5. any other symptoms that concern you C. Please call the office at if you have any concerns or questions about your operation or recovery. D. No smoking! Smoking drastically decreases the chance of a solid fusion. E. Do not take any anti-inflammatory medications (Indocin, Advil, Motrin, Aspirin, Naprosyn, etc.) as these may inhibit the chance of a solid fusion. Tylenol is okay to take for pain. MANAGING PAIN AFTER SPINAL SURGERY 1. Narcotic medication is intended for short-term use and will be provided for surgical pain. Surgical pain usually lasts for a period of 4-6 weeks. Narcotic medication includes Percocet, Vicodin, Darvocet, Tylenol #3 or Lortab. 2. Longer-term pain is more appropriately treated with non-narcotic medication such as Tylenol ES. 3. Muscle spasm is not appropriately treated with narcotics. Muscle relaxers such as Soma, Flexeril or Skelaxin can be used along with Tylenol ES. 4. Remember that we all live with some "aches and pains". This is not unusual or uncommon after an injury or as we get older. a. Back pain is expected and may include muscle spasms for 4 to 6 weeks after surgery. The pain should gradually improve. If the pain worsens for no apparent reason, please contact the office. b. Intermittent leg pain may also be experienced and should not be concerned about unless it worsens for no apparent reason. If so, please contact the office. 5. We will provide appropriate medication within the normal guidelines of their prescribed use. We will also be very cautious and aware of potential abuse and extended duration of patients' medication needs. a. Pain medications are for your comfort and to assist with sleep and rest so that the tissue can heal. They are not provided in order to return to normal activity and should not be used through the day. To do so or worsening pain at night can result from ongoing tissue damage and development of tolerance to the prescribed medicine. 6. Please allow 2-3 days to process refills. Prescriptions will not be mailed but must be picked up at the office. FOLLOW UP VISIT: Keep your scheduled follow-up appointment. Any questions, please call the office at . Pending Studies at Discharge: No Stand-Alone Forms: My [facility] [employer], Smoking Cessation Medications and DC Order Prescriptions: New oxycodone 5 mg tablet 5 mg PO Q6H PRN (Reason: pain, severe) Qty: 30 RF: 0 tramadol 50 mg tablet 50 mg PO Q6H PRN (Reason: pain, moderate) Qty: 30 RF: 0 Continued simvastatin 20 mg Tablet 20 mg PO QAM RF: 0 lisinopril 40 mg Tablet 40 mg PO QAM RF: 0 levothyroxine 125 mcg Capsule 125 mcg PO QAM RF: 0 Discharge Orders: Discharge Order (Routine); Ordered 01/30/21 Ordered By: Jayy Hunt Admission Data Admit Date/Time: 01/27/21 18:13 Attending Provider: Jayy Hunt Admit Provider: Jayy Hunt Primary Care Provider: Wm Deal Other Providers: Yvette Galvan ; James Walker ; Alex Malave
== END 2021-01-30 14:33 | disposition home or self-care (01) | DRG 455 ==
LOC: ASU 13:08 → 3W 18:13 → 3E 01-30 00:35